=== PATIENT | male | born 1980 | race Caucasian/White ===

== ENCOUNTER 2022-04-02 08:28 | Emergency (ER) | payer SELFPAY ==
[~2022-04-02] VITALS: Ht 188 cm; Wt 95.3 kg
--- NOTE | 2022-04-02 08:43 | NUR ---
TO ER BED 10. BIBS C/O RIGHT FACIAL SWELLING X3DAYS, DENIES ANY TRAUMA, HAD TOOTHACHE FEW DAYS AGO. NO RESP DISTREED NOTED. AWAITING MD ORDERS.
--- NOTE | 2022-04-02 09:02 | NUR ---
DR SANFORD AT BEDSIDE FOR EVAL
[2022-04-02] MEDS ORDERED: AMOX-430 PO (10:20)
[2022-04-02] MEDS ORDERED: IBUP-1955 PO (10:20)
[2022-04-02 10:26] VITALS: BP 138/98
--- NOTE | 2022-04-02 10:26 | NUR ---
Patient discharged to home in stable condition. Written and verbal after care instructions given. Patient verbalizes understanding of instruction.
== END 2022-04-02 10:27 | disposition home or self-care (01) ==
LOC: ER 09:38
DX: K04.7 Periapical abscess without sinus (principal)